=== PATIENT | male | born 2000 | race Caucasian/White ===

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

== ENCOUNTER 2023-07-31 10:49 | Outpatient (AMB) | payer OTHER, SELFPAY ==
--- NOTE | 2023-07-31 10:54 | MHC.PC.OV ---
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 Trouble focusing in school. Was diagnosed with ADHD in elementary but never took medication. Computational Linguist Required: No Accompanied by: Mother Allergies No Known Allergies [No Known Allergies*] Allergy (Verified 07/31/23 11:23) Tobacco use date assessed: 07/31/23 Dental Screening Dental Screen Date: 07/31/23 Did you have a dental visit in the last 12 months?: Yes Did you have a dental problem in the last 6 months where you did not have access to dental care?: No Was dental information given to patient?: Patient has dentist HPI HPI Comments History of Present Illness Details 23-year-old male generalized anxiety disorder, hyperlipidemia, ADHD Status post appendectomy with resection of short segment of small bowel for an enterotomy (2020), 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 Here today to est care with mom Would like to discuss medication for ADHD. 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 Mom reports a diagnosis was established around age 8 or 9. Patient never wanted any medications. Has a diagnosis of generalized anxiety disorder. Has never been on medications. At this time reports there is no anxiety. Denies depressive symptoms. 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 He has currently a sophomore. Reports low grades as a result of not being able to sit still or focus. He tries to play music but this no longer helps him. He leaves class half-way through as he can not sit through the lectures. He reports overall poor sleep patterns. Not sleeping. Going for runs her working out in the middle of the night. Mom reports long history of poor sleep patterns. Patient does not take any medications to help him sleep. Reports that he does not use any performance enhancing drugs or illicit substances. Denies any cardiac history REPLACED BY [facility] Medical History Anxiety High cholesterol Hypergranulation SCFE (slipped capital femoral epiphysis) Surgical History History of appendectomy History of hip surgery Status post laparoscopic appendectomy Family History (Updated 07/31/23 @ 11:09 by Mary Rivera CMA) Mother Hypercholesterolemia Father Hypercholesterolemia Hypertension Diabetes Paternal Grandfather Hypertension Hypercholesterolemia Diabetes Social History Household Members: Family Housing: House Alcohol intake: never Patient Tobacco Use Status: Never used Tobacco e-Cigarette/Vaping Use: Never Used service: No Current occupational status: employed Cognitive needs: No Hearing needs: No Vision needs: No Questionnaire PHQ-9 Over the last 2 weeks, how often have you been bothered by any of the following problems? 1. Little interest or pleasure in doing things: not at all 2. Feeling down, depressed, or hopeless: not at all 3. Trouble falling or staying asleep, or sleeping too much: not at all 4. Feeling tired or having little energy: not at all 5. Poor appetite or overeating: not at all 6. Feeling bad about yourself - or that you are a failure or have let yourself or your family down: not at all 7. Trouble concentrating on things, such as reading the newspaper or watching television: not at all 8. Moving or speaking so slowly that other people could have noticed. Or the opposite - being so fidgety or restless that you have been moving around a lot more than usual: not at all 9. Thoughts that you would be better off or of hurting yourself in some way: not at all Total score: 0 Depression Screening Interpretation: Negative Depression Screening Done: Yes 51996 - PHQ-9 Billing: Yes Source: Developed by Drs. Bud Sotelo, Tiffanie Ocampo, Andrae Dodge and colleagues, with an educational cheryl from [employer]. Thrive Questionnaire Date Thrive assessed: 07/31/23 I am a: Patient What is your living situation today?: I have a steady place to live Within the past 12 months, did the food you bought not last and you didn't have the money to get more?: Never true Within the past 12 months, did you worry whether your food would run out before you got money to buy more?: Never true Do you have trouble paying for medicines?: No Do you have trouble getting transportation to medical appointments?: No Do you have trouble paying your heating and electricity bill?: No Do you have trouble taking care of your child, family member or friend?: No Do you have trouble with day-to-day activities such as bathing, preparing meals, shopping, managing finances, etc.?: No Are you currently unemployed and looking for a job?: No Are you interested in more education?: No Please select the resources that you would like help with: None Currently or been in a relationship where the following occur: no concerns reported THRIVE Score: 0 AUDIT C Alcohol Use Questionnaire (AUDIT-C) 1. How often do you have a drink containing alcohol?: 2-4 times a month 2. How many drinks containing alcohol do you have on a typical day when you are drinking?: 1 or 2 3. How often do you have six or more drinks on one occasion?: Never Total Score: 2 Score Reviewed/Action Taken: Yes DAMARIS-7 AMB Questionnaire DAMARIS-7 Feeling nervous, anxious, or on edge: 0 = Not at all Not being able to stop or control worryin = Not at all Worrying too much about different things: 0 = Not at all Trouble relaxin = Not at all Being so restless that it is hard to sit still: 0 = Not at all Becoming easily annoyed or irritable: 0 = Not at all Feeling afraid as if something awful might happen: 0 = Not at all Total DAMARIS-7 score (0-4 normal; 5-9 mild; 10-14 moderate; 15-21 severe): 0 Source: Developed by Drs. Bud Sotelo, Tiffanie Ocampo, Andrae Dodge and colleagues, with an educational cheryl from [employer]. DAMARIS-7 Assessment Billing DAMARIS-7 Assessment Tool: DAMARIS-7 Assessment 79825 Physical exam (Primary Care) Vital Signs: Last Vital Signs Temp 98.8 F 07/31/23 11:00 Pulse 73 07/31/23 11:00 Resp 12 07/31/23 11:00 BP 130/80 07/31/23 11:00 Pulse Ox 98 07/31/23 11:00 Oxygen Delivery Method Room Air 07/31/23 11:00 BMI result Body Mass Index 26.4 Tobacco/Smoking Status: Tobacco use Status Tobacco use date assessed 07/31/23 07/31/23 11:03 Patient Tobacco Use Status Never used Tobacco 07/31/23 11:03 e-Cigarette/Vaping Use Never Used 07/31/23 11:03 PHQ-9: PHQ-9 Score PHQ-9: Total score 0 07/31/23 11:12 Depression Screening Interpretation: Negative Thrive Assessment: Date of Thrive Assessment Date Thrive assessed 07/31/23 07/31/23 11:12 Currently or been in a relationship where the following occur: no concerns reported Const Other: Awake alert oriented accompanied by mom Pleasant and cooperative Regular rate and rhythm Lung sounds clear to auscultation bilat Assessment and Plan Assessment & Plan (1) Hyperlipidemia: Comment: Mom reports this finding around age 19. We will check direct LDL today as he has not fasting. Code(s): E78.5 - Hyperlipidemia, unspecified Qualifiers: Hyperlipidemia type: moderate mixed hyperlipidemia not requiring statin therapy Qualified Code(s): E78.2 - Mixed hyperlipidemia (2) DAMARIS (generalized anxiety disorder): Comment: Has never been on medications. Feels his symptoms are well controlled right now. Code(s): F41.1 - Generalized anxiety disorder (3) ADHD: Comment: Subjective diagnosis made around age 9 at the electrical machine builder. I have asked for the pediatric records to be faxed to me to review. We will order labs today. Bring back in 1-2 weeks to discuss a treatment plan. He is not sleeping well at night. He has in a fraternity. We will likely entertain a nonstimulant to help control his symptoms. 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 While every effort has been made to ensure accuracy in shirt folder, still errors may have been included Sometimes, these errors may affect the content or meaning of the given sentence . Total time spent caring for the patient today was 45 minutes. This includes time spent before the visit reviewing the chart, time spent during the visit, and time spent after the visit on documentation Orders: Orders Comprehensive Met. Panel Today E78.5 - Hyperlipidemia, unspecified, F41.1 - Generalized anxiety disorder, F90.9 - Attention-deficit hyperactivity disorder, unspecified type TSH reflex Free T4 Today E78.5 - Hyperlipidemia, unspecified, F41.1 - Generalized anxiety disorder, F90.9 - Attention-deficit hyperactivity disorder, unspecified type LDL Cholesterol Direct Today E78.5 - Hyperlipidemia, unspecified, F41.1 - Generalized anxiety disorder, F90.9 - Attention-deficit hyperactivity disorder, unspecified type Microalbumin, Random (w Creat) Today E78.5 - Hyperlipidemia, unspecified, F41.1 - Generalized anxiety disorder, F90.9 - Attention-deficit hyperactivity disorder, unspecified type Complete Blood Count no Diff Today E78.5 - Hyperlipidemia, unspecified, F41.1 - Generalized anxiety disorder, F90.9 - Attention-deficit hyperactivity disorder, unspecified type Coding Level of Care Code New Pt Level 4 (01727) Diagnoses Moderate mixed hyperlipidemia not requiring statin therapy E78.2 Hyperlipidemia type: moderate mixed hyperlipidemia not requiring statin therapy DAMARIS (generalized anxiety disorder) F41.1 Attention deficit hyperactivity disorder (ADHD), combined type F90.2 Attention deficit-hyperactivity disorder type: combined inattentive-hyperactive Additional Codes DAMARIS-7 Assessment Billing - DAMARIS-7 Assessment Tool: DAMARIS-7 Assessment [id number] ([id number])
[2023-07-31 11:00] VITALS: BP 130/80; PULSE 73; RESP 12; TEMP 37.1; O2SAT 98; BMI 26.4
== END 2023-07-31 11:41 | disposition home or self-care (01) ==
PROVIDERS: PCP Nurse Practitioner Family; Visit Provider Nurse Practitioner Family
DX: E78.2 Mixed hyperlipidemia (principal); F41.1 Generalized anxiety disorder; F90.2 Attention-deficit hyperactivity disorder, combined type
CPT/HCPCS: 99204

== ENCOUNTER 2023-07-31 11:33 | Outpatient (REF) | payer OTHER, SELFPAY ==
[2023-07-31 15:06] LABS: Alanine Aminotransferase 21 U/L (0-40); Albumin Level 4.4 g/dL (3.5-5.0); Alkaline Phosphatase 87 U/L (39-117); Anion Gap 11 (12-20); Aspartate Amino Transferase 23 U/L (5-37); Bilirubin Total 0.5 mg/dL (0.0-1.0); Blood Urea Nitrogen 15 mg/dL (9-16); Calcium 10.4 mg/dL (8.4-10.2); Carbon Dioxide 28 mmol/L (22-29); Chloride 106 mmol/L (96-108); Estimated Glomerular Filt Rate > 60; Glucose Random 77 mg/dL (60-115); Potassium 3.6 mmol/L (3.3-5.1); Sodium 141 mmol/L (135-145); Total Protein 7.5 g/dL (6.5-8.0)
[2023-07-31 15:14] LABS: Hematocrit 47.3 % (42.0-52.0); Hemoglobin 16.1 g/dl (14.0-18.0); Mean Corpuscular Hemoglobin 28.9 pg (27.0-33.0); Mean Corpuscular Volume 84.9 fL (80.0-98.0); Mean Platelet Volume 10.5 fL (9.4-12.4); Platelet Count 266 X10*3/uL (160-400); Red Blood Count 5.57 X10*6/uL (4.60-5.80); Red Cell Distribution Width 12.3 % (11.0-16.0); White Blood Count 4.7 X10*3/uL (4.8-10.8)
[2023-07-31 15:16] LABS: TSH reflex Free T4 1.79 uIU/mL (0.32-4.0)
[2023-07-31 15:33] LABS: Creatinine Urine 221.75 mg/dL; Microalbum/Creatinine Ratio Ur 3.1 ug/mg cr (<30)
[2023-08-01 09:48] LABS: LDL Cholesterol Direct 123 mg/dL (<100)
== END 2023-07-31 11:34 | disposition home or self-care (01) ==
LOC: HO.WFDLDS 11:33
PROVIDERS: Visit Provider Nurse Practitioner Family
DX: F41.1 Generalized anxiety disorder (principal); F90.9 Attention-deficit hyperactivity disorder, unspecified type; E78.5 Hyperlipidemia, unspecified
CPT/HCPCS: 36415; 80053; 82043; 82570; 83721; 84443; 85027

== ENCOUNTER 2023-08-14 12:54 | Outpatient (AMB) | payer OTHER, SELFPAY ==
[2023-08-14 12:55] VITALS: BP 108/60; PULSE 67; RESP 13; O2SAT 98; BMI 26.5
--- NOTE | 2023-08-14 12:55 | A.OFFPC_ITS ---
Vital Signs 08/14/23 12:55 Height 5 ft 7.2 in Weight 170 lb BMI 26.5 BP 108/60 Blood Pressure Location Rt brachial Position Sitting Respiration 13 Pulse 67 Pulse Source Pulse Oximeter Pulse Oximetry (%) 98 Oxygen Delivery Method Room Air Intake Visit Reasons: FU LABS ADHD Intake Note: Patient reports he is here for a follow up. Patient states he has no concerns at this time. 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 Here today to follow up on labs and discuss medication management for ADHD and insomnia. 07/2024 LDL 123, otherwise normal CBC, TS H, CMP He has never been on any medications for ADHD in the past. Main concerns are trouble focusing, inability to complete tasks, racing thoughts at night, inability to fall asleep. [facility] Medical History (Updated 08/14/23 @ 13:55 by SHELLI Lennon-DANY) Hypergranulation Anxiety SCFE (slipped capital femoral epiphysis) High cholesterol Surgical History Status post laparoscopic appendectomy History of appendectomy History of hip surgery Family History (Updated 07/31/23 @ 11:09 by Mary Rivera CMA) Mother Hypercholesterolemia Father Hypercholesterolemia Hypertension Diabetes Paternal Grandfather Hypertension Hypercholesterolemia Diabetes Social History Household Members: Family Housing: House Alcohol intake: never Patient Tobacco Use Status: Never used Tobacco e-Cigarette/Vaping Use: Never Used service: No Current occupational status: employed Cognitive needs: No Hearing needs: No Vision needs: No Questionnaire Thrive Questionnaire Date Thrive assessed: 07/31/23 Review of Systems Const All systems reviewed & are unremarkable except as noted in HPI and below Physical exam (Primary Care) Vital Signs: Last Vital Signs Pulse 67 08/14/23 12:55 Resp 13 08/14/23 12:55 BP 108/60 08/14/23 12:55 Pulse Ox 98 08/14/23 12:55 Oxygen Delivery Method Room Air 08/14/23 12:55 BMI result Body Mass Index 26.5 Tobacco/Smoking Status: Tobacco use Status Tobacco use date assessed 07/31/23 08/14/23 13:02 Patient Tobacco Use Status Never used Tobacco 08/14/23 13:02 e-Cigarette/Vaping Use Never Used 08/14/23 13:02 Thrive Assessment: Date of Thrive Assessment Date Thrive assessed 07/31/23 08/14/23 13:02 Const Other: Awake alert oriented pleasant Pleasant and cooperative Regular rate and rhythm Lung sounds clear to auscultation bilat Assessment and Plan Assessment & Plan (1) ADHD: Comment: 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 I have asked for the pediatric records to be faxed to me to review (records pending) He is not sleeping well at night. 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 We will likely entertain a nonstimulant to help control his symptoms Plan: Start Wellbutrin XL 150 mg p.o. q.day. Advised to take in the morning. Follow up in 3-4 weeks on effectiveness. Titrate to effect. Code(s): F90.9 - Attention-deficit hyperactivity disorder, unspecified type Qualifiers: Attention deficit-hyperactivity disorder type: combined inattentive- hyperactive Qualified Code(s): F90.2 - Attention-deficit hyperactivity disorder, combined type (2) DAMARIS (generalized anxiety disorder): Comment: Has never been on medications. Feels his symptoms are well controlled right now. Prescribed Wellbutrin today to help with his ADHD. If there is any level of anxiety the Wellbutrin should help with this as well. Code(s): F41.1 - Generalized anxiety disorder (3) Hyperlipidemia: Comment: Mom reports this finding around age 19. Direct LDL 123. Continue to monitor. Code(s): E78.5 - Hyperlipidemia, unspecified Qualifiers: Hyperlipidemia type: moderate mixed hyperlipidemia not requiring statin therapy Qualified Code(s): E78.2 - Mixed hyperlipidemia (4) Insomnia: Comment: Associated with racing thoughts. The plan will be to start him on hydroxyzine 50 mg 1 tablet as needed at bedtime. Return to office in 3-4 weeks to follow up on effectiveness. Code(s): G47.00 - Insomnia, unspecified Plan: This note is constructed using voice recognition software. While every effort has been made to ensure accuracy in can striper, still errors may have been included Sometimes, these errors may affect the content or meaning of the given sentence . Total time spent caring for the patient today was 30 minutes. This includes time spent before the visit reviewing the chart, time spent during the visit, and time spent after the visit on documentation Medications: New bupropion HCl XL (Wellbutrin XL) 150 mg PO QAM 90 tabs 0RF hydroxyzine HCl 50 mg PO BEDTIME PRN 30 tabs 0RF insomnia/anxiety Patient Instructions: Return to office in 3-4 weeks to follow up on effectiveness of medications used to treat ADHD, insomnia. Sooner if needed. Coding Level of Care Code Est Pt Level 4 (89134) Diagnoses Attention deficit hyperactivity disorder (ADHD), combined type F90.2 Attention deficit-hyperactivity disorder type: combined inattentive- hyperactive DAMARIS (generalized anxiety disorder) F41.1 Moderate mixed hyperlipidemia not requiring statin therapy E78.2 Hyperlipidemia type: moderate mixed hyperlipidemia not requiring statin therapy Insomnia G47.00
== END 2023-08-14 13:29 | disposition home or self-care (01) ==
PROVIDERS: PCP Nurse Practitioner Family; Visit Provider Nurse Practitioner Family
DX: F90.2 Attention-deficit hyperactivity disorder, combined type (principal); F41.1 Generalized anxiety disorder; E78.2 Mixed hyperlipidemia; G47.00 Insomnia, unspecified
CPT/HCPCS: 99214

== ENCOUNTER 2023-10-31 13:16 | Outpatient (AMB) | payer OTHER, SELFPAY ==
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
[2023-10-31 13:29] VITALS: BP 122/70; PULSE 94; RESP 16; O2SAT 97; BMI 26.9
== END 2023-10-31 13:59 | disposition home or self-care (01) ==
PROVIDERS: PCP Nurse Practitioner Family; Visit Provider Nurse Practitioner Family
DX: F41.1 Generalized anxiety disorder (principal); F33.1 Major depressive disorder, recurrent, moderate
CPT/HCPCS: 99215

== ENCOUNTER 2024-03-10 08:31 | Outpatient (REF) | payer OTHER, SELFPAY ==
[2024-03-10 13:26] LABS: MANUAL DIFF FLAG NO
[2024-03-10 13:45] LABS: Basophils Percent Auto 0.5 % (0-2); Eosinophils Absolute Auto 0.1 X10*3/uL (0.0-0.4); Eosinophils Percent Auto 0.9 % (0-4); Hematocrit 44.2 % (42.0-52.0); Hemoglobin 15.4 g/dl (14.0-18.0); Imm Gran Abs Auto 0.03 X10*3/uL (0.00-0.03); Imm Gran Pct Auto 0.5 % (0.0-0.4); Lymphocytes Absolute Auto 1.4 X10*3/uL (1.2-4.9); Lymphocytes Percent Auto 24.2 % (20-40); Mean Corpuscular HGB Conc 34.8 g/dl (31.0-36.0); Mean Corpuscular Hemoglobin 29.3 pg (27.0-33.0); Mean Platelet Volume 10.7 fL (9.4-12.4); Monocytes Absolute Auto 0.8 X10*3/uL (0.1-1.2); Neutrophils Absolute Auto 3.5 x10*3/uL (2.0-8.3); Neutrophils Percent Auto 60.9 % (45-73); Platelet Count 248 X10*3/uL (160-400); Red Blood Count 5.26 X10*6/uL (4.60-5.80); Red Cell Distribution Width 12.4 % (11.0-16.0); White Blood Count 5.8 X10*3/uL (4.8-10.8)
[2024-03-10 13:57] LABS: Alanine Aminotransferase 28 U/L (0-40); Albumin Level 4.4 g/dL (3.5-5.0); Alkaline Phosphatase 98 U/L (39-117); Anion Gap 16 (12-20); Aspartate Amino Transferase 33 U/L (5-37); Bilirubin Total 0.6 mg/dL (0.0-1.0); Blood Urea Nitrogen 14 mg/dL (9-16); Calcium 10.2 mg/dL (8.4-10.2); Carbon Dioxide 21 mmol/L (22-29); Chloride 108 mmol/L (96-108); Estimated Glomerular Filt Rate > 60; Glucose Random 79 mg/dL (60-115); Lipase 23 U/L (8-78); Potassium 3.8 mmol/L (3.3-5.1); Sodium 141 mmol/L (135-145); Total Protein 7.6 g/dL (6.5-8.0)
== END 2024-03-10 08:32 | disposition home or self-care (01) ==
LOC: HO.HMGCLDS 08:31
PROVIDERS: PCP Nurse Practitioner Family; Visit Provider Physician Assistant
DX: R10.9 Unspecified abdominal pain (principal)
CPT/HCPCS: 36415; 80053; 83690; 85025

== ENCOUNTER 2024-03-10 08:31 | Outpatient (AMB) | payer OTHER, SELFPAY ==
--- OUTSIDE RECORDS SUMMARY | 2024-03-10 08:32 | XMS_ITS | Continuity of Care Document ---
Author Organization [facility] ter Address [address] [place] [address]- Care Team Providers Care Firebrick Layer Name Role Phone Harriet RIBEIRO, Jose Angel Hawk Primary Care Physician Encounter [facility] Date(s): 05/25/19 - 06/01/[address] [address]- [facility] Attending Physician: Lan Rock MD Allergies, Adverse Reactions, Alerts Substance Reaction Severity Status NKA Active Results Microbiology Reports TEST:Group A Strep Culture STATUS:Auth (Verified) BODY SITE: SOURCE:THROAT COLLECTED DATE/TIME:05/25/19 10:52 AM Group A Strep Culture SPECIMEN DESCRIPTION : THROAT SWAB SPECIAL REQUESTS : NONE CULTURE : NO GROUP A BETA HEMOLYTIC STREPTOCOCCI ISOLATED REPORT STATUS : FINAL 05/27/2019
--- OUTSIDE RECORDS SUMMARY | 2024-03-10 08:32 | XMS_ITS | Summary of Care ---
Author Organization [facility] Address [address] [place] [address]- Encounter [facility] [id number] Date(s): 12/01/19 - 12/01/19 [place] [address]- [facility] Discharge Disposition: Home Attending Physician: LYNN RIBEIRO, PhD, ADRIANA Landin
--- OUTSIDE RECORDS SUMMARY | 2024-03-10 08:32 | XMS_ITS | Continuity of Care Document ---
Author Organization [facility] ter Address [address] [place] [address]- Care Team Providers Care Assembler Steam And Gas Turbine Name Role Phone Jose Angel Worthington MD Primary Care Physician Encounter [facility] Date(s): 12/04/21 - 01/07/[address] [address] Attending Physician: Jose Angel Worthington MD Admitting Physician: Jose Angel Worthington MD Referring Physician: Jose Angel Worthington MD Allergies, Adverse Reactions, Alerts No Known Allergies Care Team Personnel Name: Jose Angel Worthington MD Address: [address] [place] [address]
--- OUTSIDE RECORDS SUMMARY | 2024-03-10 08:32 | XMS_ITS | Continuity of Care Document ---
Author Organization [facility] ter Address [address] [place] [address]- Care Team Providers Care Paver Operator Name Role Phone Harriet RIBEIRO, Jose Angel Hawk Primary Care Physician Encounter [facility] Date(s): 12/03/19 - 01/04/[address] [address]- [facility] Attending Physician: Tiffanie Jackson MD Admitting Physician: Tiffanie Jackson MD Referring Physician: Tiffanie Jackson MD Allergies, Adverse Reactions, Alerts Substance Reaction Severity Status NKA Active
--- OUTSIDE RECORDS SUMMARY | 2024-03-10 08:32 | XMS_ITS | Summary of Care ---
Author Organization [facility] Address [address] [place] [address]- Care Team Providers Care Movement Education Specialist Name Role Phone LIS WEBER MD Primary Care Physician Encounter [facility] [id number] Date(s): 12/08/19 - 12/08/19 [facility], [place] [address]- [facility] Encounter Diagnosis Primary exertional headache(Final) - Discharge Disposition: Home Attending Physician: RUPERT MARQUES Referring Physician: LIS WEBER MD Allergies, Adverse Reactions, Alerts No Known Allergies Medications No Known Medications
--- NOTE | 2024-03-10 08:34 | MHC.OFFWIV ---
Intake Vital Signs 03/10/24 08:37 Height 5 ft 7 in Weight 173 lb BMI 27.1 BP 118/70 Blood Pressure Location Rt brachial Position Sitting Pulse 70 Pulse Source Pulse Oximeter Temp 98.0 F Temp Source Oral Pulse Oximetry (%) 100 Intake Visit Reasons: EP Heartburn/ pain, vomiting when eating Intake Note: pt is here for heartburn, vomiting after eating for the last 3 days Patient Tobacco Use Status: Never used Tobacco Allergies No Known Allergies [No Known Allergies*] Allergy (Verified 03/10/24 08:38) Do you need a note to return to daycare/school/sports/work: No HPI HPI Comments History of Present Illness Details He presents to office with epigastric pain x 3 days States radiates into chest Has had heart burn in past and feels similar States + bloating, epigastric pain, easily feels full He said appetitie is fine + nausea after eating everything He had one episode of vomiting No diarrhea or constipation + cough throighout the day He has tried Tums which helps slightly He desxribes pain as tight and sharp with burn located in epigastric region Intermittent throughout the day but can be constant Now it is a 4/10; this am was worse Halloween weekend drank a lot at [employer] (Saturday-Saturday) [facility] Medical History (Updated 03/10/24 @ 09:07 by Connie Mckeon PA-C) Hypergranulation Anxiety SCFE (slipped capital femoral epiphysis) High cholesterol Surgical History Status post laparoscopic appendectomy History of appendectomy History of hip surgery Family History (Updated 07/31/23 @ 11:09 by Mary Rivera CMA) Mother Hypercholesterolemia Father Hypercholesterolemia Hypertension Diabetes Paternal Grandfather Hypertension Hypercholesterolemia Diabetes Social History Household Members: Family Housing: House Alcohol intake: never Patient Tobacco Use Status: Never used Tobacco e-Cigarette/Vaping Use: Never Used service: No Current occupational status: employed Cognitive needs: No Hearing needs: No Vision needs: No Review of Systems Const Denies chills, Denies fever(s), Denies headache(s) and Denies poor appetite ENT Denies dizziness, Denies headache(s) and Denies sore throat Card Denies chest pain, Denies syncope, Denies rapid heart rate and Denies dyspnea Resp Denies chest congestion, Denies cough and Denies dyspnea GI Reports abdominal pain, Denies melena, Denies constipation, Denies diarrhea, Denies loose stools, Reports nausea, Reports vomiting, Denies hematemesis and Reports other (bloating x 3 days) Denies dysuria Musc Denies myalgias Skin/Breast Denies skin pain Neuro Denies dizziness, Denies syncope and Denies headache(s) Physical Exam Vital Signs: Last Vital Signs Temp 98.0 F 03/10/24 08:37 Pulse 70 03/10/24 08:37 BP 118/70 03/10/24 08:37 Pulse Ox 100 03/10/24 08:37 BMI result Body Mass Index 27.1 General: Non-toxic, NAD. Speaking full sentences. Skin: Warm dry throughout Eye: PERRL, EOMI HENT: Airway patent. Uvula midline. No pharyngeal erythema or edema. No R[employer]EW[employer] BROKER. Bilateral canals clear. TM non-erythematous, non-bulging. No TM perforation or hemotympanum noted. Respiratory: CTA bilaterally. No wheezes, rales or rhonchi Cardiac: RRR. No murmur Abdominal: BS present. + epigastric tenderness to palpation. Negative [place] sign. No palpable masses. No abdominal distention or pusatile mass. MSK: Full ROM extremities. Neurology: A/O. No aphasia or facial droop. Equal strength. Gait without abnormality Psych: Good mood and affect Assessment & Plan Assessment & Plan (1) Abdominal pain: Code(s): R10.9 - Unspecified abdominal pain Qualifiers: Abdominal location: epigastric Qualified Code(s): R10.13 - Epigastric pain Plan: Patient seen and evaluated. Will order labs to r/o pancreatitis vs gastritis EKG NSR without ischemic changes or STEMI; 65bpm CBC, CMP, lipase ordered Discussed ER s/s Patient gave verbal understanding and had no additional questions or concerns at time of discharge All questions answered Orders: Orders Comprehensive Met. Panel Today R10.9 - Unspecified abdominal pain Lipase Today R10.9 - Unspecified abdominal pain Complete Blood Count Auto Diff Today R10.9 - Unspecified abdominal pain Medications: New omeprazole 20 mg PO DAILY 20 tabs 0RF Coding Level of Care Code Est Pt Level 3 (76443) Diagnoses Epigastric pain R10.13 Abdominal location: epigastric
[2024-03-10 08:37] VITALS: BP 118/70; PULSE 70; TEMP 36.7; O2SAT 100; BMI 27.1
== END 2024-03-10 09:11 | disposition home or self-care (01) ==
PROVIDERS: PCP Nurse Practitioner Family; Visit Provider Physician Assistant
DX: R10.13 Epigastric pain (principal)

== ENCOUNTER 2024-05-08 13:32 | Outpatient (AMB) | payer OTHER, SELFPAY ==
--- NOTE | 2024-05-08 13:39 | AM.OFFWIN_ITS ---
Intake Vital Signs 05/08/24 13:42 Height 5 ft 7 in Weight 178 lb BMI 27.9 BP 112/66 Blood Pressure Location Rt brachial Position Sitting Respiration 13 Pulse 87 Pulse Source Pulse Oximeter Temp 98.0 F Temp Source Oral Pulse Oximetry (%) 98 Oxygen Delivery Method Room Air Intake Visit Reasons: cough/flu Intake Note: Patient complaining of hard to breath, coughing, bodyaches and wheezing at night x 3 days Patient Tobacco Use Status: Never used Tobacco Order Entry Representative Required: No Allergies No Known Allergies [No Known Allergies*] Allergy (Verified 05/08/24 13:51) Medication List - Last Reconciled 05/08/24 by Marj Terry, [employer] TECHNICIAN- hydroxyzine HCl 50 mg PO BEDTIME PRN omeprazole 20 mg PO DAILY Do you need a note to return to daycare/school/sports/work: No HPI HPI Comments History of Present Illness Details 23-year-old male generalized anxiety dis order, hyperlipidemia, ADHD, MDD Status post appendectomy with resection of short segment of small bowel for an enterotomy (2020), 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 The patient is a 23-year-old male presenting with complaints of cough and respiratory distress. He reports experiencing symptoms for approximately 1 week, with the distress primarily occurring during the night and worsening when lying supine. The cough has been persistent, and he describes moments of significant difficulty in breathing, characterized by pressure and tightness in the center of the chest. He denies any history of asthma, smoking, vomiting, or stomach upset. He visited an urgent care facility where he was assessed for influenza and COVID-19, both of which returned negative results. An inhaler was prescribed and used once with marginal relief. He notes heightened anxiety during episodes of breathlessness. Previous exposure to prednisone showed no adverse reactions. Social History - Educational Status: [employer] and reports it is proceeding well. - Family Status: Supportive relationship with his mother. Mood is good w/o meds. Physical Exam General: Awake, alert. No apparent distress Eyes: Sclera and conjunctiva clear bilaterally Nose: Nares patent, turbinates erythematous, , no sinus tenderness with palpation bilaterally Ears: Tympanic membranes intact and clear bilaterally Throat: Moist mucosa membrane, pharynx within normal limits Cardiovascular: Regular rate and rhythm Respiratory: Clear to auscultation bilaterally, dry cough noted w/o distress Results - Labs: Negative results for Influenza a nd COVID-19 testing per reports. Plan - Prescribe oral prednisone for respirat ory distress, with specific dosing instructions for initiation and continuation. - Instruct patient to utilize inhaler mo re frequently, specifically two puffs every couple of hours as needed. - Prescribe cough suppressant medication to be taken up to three times daily as required. - Advise continuation of monitoring symp toms and seek further evaluation if no improvement by Saturday. Patient was informed and verbally consented to the use of an ambient scribe for clinic note documentation during this visit. Discussion Notes I discussed with the patient his current symptoms of cough and respiratory distress, noting the negative results for influenza and COVID-19. The management plan includes utilizing an inhaler and initiating oral corticosteroids (prednisone) to reduce inflammation and improve respiratory function. We considered antibiotics as a potential future option if symptoms persist or worsen by Saturday. I emphasized the importance of starting prednisone with food and the potential for pneumonia given the current widespread incidence, though it was not detected during this examination. Urged immediate contact or office visit should symptoms not improve within the next few days. Patient Instructions - Start prednisone today with food; cont inue one pill daily in the morning with food for five days. - Use the inhaler every few hours, two p uffs as needed, continuing for symptomatic relief. - Take cough medicine up to three times daily as needed. - Monitor symptoms and seek further eval uation if not improved by Saturday. - Collect prescribed medications from [facility] and begin treatment immediately. RTO as scheduled for CPE, sooner PRN [facility] Medical History (Updated 05/08/24 @ 13:58 by Marj Terry, [facility]) Hypergranulation Anxiety SCFE (slipped capital femoral epiphysis) High cholesterol Surgical History Status post laparoscopic appendectomy History of appendectomy History of hip surgery Family History (Updated 07/31/23 @ 11:09 by Mary Rivera [facility]) Mother Hypercholesterolemia Father Hypercholesterolemia Hypertension Diabetes Paternal Grandfather Hypertension Hypercholesterolemia Diabetes Social History Household Members: Family Housing: House Alcohol intake: never Patient Tobacco Use Status: Never used Tobacco e-Cigarette/Vaping Use: Never Used service: No Current occupational status: employed Cognitive needs: No Hearing needs: No Vision needs: No Physical Exam Vital Signs: Last Vital Signs Temp 98.0 F 05/08/24 13:42 Pulse 87 05/08/24 13:42 Resp 13 05/08/24 13:42 BP 112/66 05/08/24 13:42 Pulse Ox 98 05/08/24 13:42 Oxygen Delivery Method Simple Mask 05/08/24 13:42 BMI result Body Mass Index 27.9 Assessment & Plan Assessment & Plan (1) Viral URI with cough: Code(s): J06.9 - Acute upper respiratory infection, unspecified (2) MDD (major depressive disorder), recurrent episode: Code(s): F33.9 - Major depressive disorder, recurrent, unspecified Qualifiers: Major depression episode severity: moderate Qualified Code(s): F33.1 - Major depressive disorder, recurrent, moderate (3) ADHD: Comment: Subjective diagnosis made around age 9 at the [facility]. I have asked for the pediatric records to be faxed to me to review (records pending) He is not sleeping well at night. 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 We will likely entertain a nonstimulant to help control his symptoms Plan: Start Wellbutrin XL 150 mg p.o. q.day. Advised to take in the morning. Follow up in 3-4 weeks on effectiveness. Titrate to effect. Code(s): F90.9 - Attention-deficit hyperactivity disorder, unspecified type Qualifiers: Attention deficit-hyperactivity disorder type: combined inattentive- hyperactive Qualified Code(s): F90.2 - Attention-deficit hyperactivity disorder, combined type (4) DAMARIS (generalized anxiety disorder): Code(s): F41.1 - Generalized anxiety disorder Plan . Medications: New prednisone 20 mg PO DAILY 5 tabs 0RF benzonatate 100 mg PO TID 10 days PRN 30 caps 1RF cough Coding Level of Care Code Est Pt Level 4 (42804) Diagnoses Viral URI with cough J06.9 Moderate episode of recurrent major depressive disorder F33.1 Major depression episode severity: moderate Attention deficit hyperactivity disorder (ADHD), combined type F90.2 Attention deficit-hyperactivity disorder type: combined inattentive- hyperactive DAMARIS (generalized anxiety disorder) F41.1
[2024-05-08 13:42] VITALS: BP 112/66; PULSE 87; RESP 13; TEMP 36.7; O2SAT 98; BMI 27.9
== END 2024-05-08 16:41 | disposition home or self-care (01) ==
PROVIDERS: PCP Nurse Practitioner Family; Visit Provider Nurse Practitioner Family
DX: J06.9 Acute upper respiratory infection, unspecified (principal); F33.1 Major depressive disorder, recurrent, moderate; F90.2 Attention-deficit hyperactivity disorder, combined type; F41.1 Generalized anxiety disorder

== ENCOUNTER → 2024-05-08 13:32 | Outpatient (BNVA) | payer OTHER, SELFPAY | PROVIDERS: PCP Nurse Practitioner Family; Visit Provider Nurse Practitioner Family ==

== ENCOUNTER 2024-09-03 08:35 | Outpatient (AMB) | payer BC, SELFPAY ==
--- NOTE | 2024-09-03 08:37 | A.OFFPC_ITS ---
Vital Signs 09/03/24 08:40 Height 5 ft 7 in Weight 178 lb 8 oz BMI 28.0 BP 98/68 Blood Pressure Location Lt brachial Position Sitting Respiration 12 Pulse 64 Pulse Source Pulse Oximeter Temp 97.6 F Temp Source Oral Pulse Oximetry (%) 98 Oxygen Delivery Method Room Air Intake Visit Reasons: Anxiety - Depression Intake Note: Follow up Security Shift Manager Required: No Allergies No Known Allergies [No Known Allergies*] Allergy (Verified 09/03/24 08:43) Medication List - Last Reconciled 09/03/24 by SHELLI Lennon- hydroxyzine HCl 50 mg PO BEDTIME PRN omeprazole 20 mg PO DAILY Tobacco use date assessed: 09/03/24 Dental Screening Dental Screen Date: 09/03/24 Did you have a dental visit in the last 12 months?: Yes Did you have a dental problem in the last 6 months where you did not have access to dental care?: No Was dental information given to patient?: Patient has dentist HPI HPI Comments History of Present Illness Details 24-year-old male generalized anxiety dis order, hyperlipidemia, ADHD, MDD Status post appendectomy with resection of short segment of small bowel for an enterotomy (2020), 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 Social: graduates from [employer], Psych Major next year. Wants to be a State T rooper, has a girlfriend. 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 History of Present Illness - The patient is a 24-year-old male pres enting with anxiety and depression. - Recently, he experienced increased anx iety following failure in an important test for his criminal justice program. - The patient has a history of generaliz ed anxiety disorder, previously managed with hydroxyzine, causing significant grogginess. - The patient has had prior prescription s for Zoloft and Prozac, the latter not taken. - He expresses an aversion to medication s yet believes pharmacological intervention is essential. - He denies suicidal ideation but admits to obsessional thoughts, particularly health-related; racing thoughts and feelings of sadness. No suicidal ideation. - Previous involvement in counseling was beneficial, but the patient is not currently engaged, citing bias concerns with personal connections. - Overall, depressive symptoms present m ainly as situational disturbances. Due for Tdap, declined today. Physical Exam General: Well developed, well nourished, in no acute distress. Appears stated age. Head: Normocephalic, atraumatic. Eyes: Pupils are equal, round and reactive to light and accommodation. Conjunctivae are clear. Lungs: Clear to auscultation bilaterally. No rales, rhonchi or wheeze noted. Good air flow in all bower. Heart: Regular rate and rhythm. No murmurs, click, rubs or gallops are noted. Psych: Mood and affect appropriate Discussion Notes The patient and I discussed multiple interventions for managing his anxiety and depression, including a trial of fluoxetine, with detailed discussions on it being a safe and effective medication to manage his obsessive and anxiety- related symptoms, although concerns about side effects and lifestyle impacts were addressed. I advised continuing hydroxyzine with an alternative lower dosage to minimize grogginess. I also encouraged a referral to counseling services for cognitive-behavioral therapy despite his apprehension towards therapy, underscoring the potential benefits of a therapist's unbiased perspective. I recommended a six-week follow-up to evaluate the effectiveness of the fluoxetine. We reviewed the common initial side effects of fluoxetine, including possible headaches and nausea. The patient was offered the option of consulting community navigation for therapy referrals to align with his insurance and preferences. He declined an update for his tetanus immunization today. Assessment and Plan 1. Generalized Anxiety Disorder Plan to trial fluoxetine for managing anxiety with a tentative dose scheduling. We discussed dosage adjustments if initial side effects are intolerable. 2. Major Depressive Disorder Fluoxetine is also indicated for depressive symptoms, acknowledging its role in alleviating both anxiety and depression. 3. Insomnia We considered starting prazosin to target nocturnal anxiety-associated insomnia. - Declined at this time, will cont w/ hydroxyzine. 4. Situational Stress Reaction Reinforce support systems, including counseling access to refine stress management and cognitive-behavioral coping strategies. Patient Instructions - Start taking fluoxetine once daily, wi th or without food, at a consistent time. - Use hydroxyzine 10 mg as needed for ac carlyn anxiety during the day, ok to use higher doses at night. - Seek counseling services through [facility] or referral options. - Report any unusual symptoms or concern s with medication use. - Return for a follow-up in six weeks to reassess the effectiveness of treatment. Consent Patient was informed and verbally consented to the use of an ambient scribe for clinic note documentation during this visit. Total time spent caring for the patient today was 30 minutes. This includes time spent before the visit reviewing the chart, time spent during the visit, and time spent after the visit on documentation, reviewing laboratory results, diagnostic imaging, medications, performing a medically necessary evaluation, counseling on diagnoses, care coordination, ordering appropriate tests, ordering appropriate medications, review of tests performed by other providers, reporting test results with the patient, communication with other healthcare providers. [facility] Medical History (Updated 09/03/24 @ 09:00 by Marj Terry [facility]) Anxiety High cholesterol Hypergranulation SCFE (slipped capital femoral epiphysis) Surgical History History of appendectomy History of hip surgery Status post laparoscopic appendectomy Family History (Updated 07/31/23 @ 11:09 by Mary Rivera CMA) Mother Hypercholesterolemia Father Hypercholesterolemia Hypertension Diabetes Paternal Grandfather Hypertension Hypercholesterolemia Diabetes Social History Household Members: Family Housing: House Alcohol intake: never Patient Tobacco Use Status: Never used Tobacco e-Cigarette/Vaping Use: Never Used service: No Current occupational status: employed Cognitive needs: No Hearing needs: No Vision needs: No Questionnaire PHQ-9 Over the last 2 weeks, how often have you been bothered by any of the following problems? 1. Little interest or pleasure in doing things: not at all 2. Feeling down, depressed, or hopeless: not at all 3. Trouble falling or staying asleep, or sleeping too much: not at all 4. Feeling tired or having little energy: not at all 5. Poor appetite or overeating: not at all 6. Feeling bad about yourself - or that you are a failure or have let yourself or your family down: not at all 7. Trouble concentrating on things, such as reading the newspaper or watching television: not at all 8. Moving or speaking so slowly that other people could have noticed. Or the opposite - being so fidgety or restless that you have been moving around a lot more than usual: not at all 9. Thoughts that you would be better off or of hurting yourself in some way: not at all Total score: 0 Depression Screening Interpretation: Negative Depression Screening Done: Yes 89087 - PHQ-9 Billing: Yes Source: Developed by Drs. Bud Sotelo, Andrae Haynes and colleagues, with an educational cheryl from [employer]. Thrive Questionnaire Date Thrive assessed: 09/03/24 I am a: Patient What is your living situation today?: I have a steady place to live Within the past 12 months, did the food you bought not last and you didn't have the money to get more?: Never true Within the past 12 months, did you worry whether your food would run out before you got money to buy more?: Never true Do you have trouble paying for medicines?: No Do you have trouble getting transportation to medical appointments?: No Do you have trouble paying your heating and electricity bill?: No Do you have trouble taking care of your child, family member or friend?: No Do you have trouble with day-to-day activities such as bathing, preparing meals, shopping, managing finances, etc.?: No Are you currently unemployed and looking for a job?: No Are you interested in more education?: No Please select the resources that you would like help with: None Currently or been in a relationship where the following occur: No concerns reported THRIVE Score: 0 AUDIT C Alcohol Use Questionnaire (AUDIT-C) 1. How often do you have a drink containing alcohol?: Never 3. How often do you have six or more drinks on one occasion?: Never Total Score: 0 Score Reviewed/Action Taken: Yes DAMARIS-7 AMB Questionnaire DAMARIS-7 Date DAMARIS - 7 assessed: 09/03/24 Feeling nervous, anxious, or on edge: 0 = Not at all Not being able to stop or control worryin = Not at all Worrying too much about different things: 0 = Not at all Trouble relaxin = Not at all Being so restless that it is hard to sit still: 0 = Not at all Becoming easily annoyed or irritable: 0 = Not at all Feeling afraid as if something awful might happen: 0 = Not at all Total DAMARIS-7 score (0-4 normal; 5-9 mild; 10-14 moderate; 15-21 severe): 0 Source: Developed by Drs. Bud Sotelo, Andrae Haynes and colleagues, with an educational cheryl from [employer]. DAMARIS-7 Assessment Billing DAMARIS-7 Assessment Tool: DAMARIS-7 Assessment 09961 Physical exam (Primary Care) Vital Signs: Last Vital Signs Temp 97.6 F 09/03/24 08:40 Pulse 64 09/03/24 08:40 Resp 12 09/03/24 08:40 BP 98/68 09/03/24 08:40 Pulse Ox 98 09/03/24 08:40 Oxygen Delivery Method Room Air 09/03/24 08:40 BMI result Body Mass Index 28.0 Tobacco/Smoking Status: Tobacco use Status Tobacco use date assessed 09/03/24 09/03/24 08:42 Patient Tobacco Use Status Never used Tobacco 09/03/24 08:38 e-Cigarette/Vaping Use Never Used 09/03/24 08:38 PHQ-9: PHQ-9 Score PHQ-9: Total score 0 09/03/24 08:42 Depression Screening Interpretation: Negative Thrive Assessment: Date of Thrive Assessment Date Thrive assessed 09/03/24 09/03/24 08:42 Currently or been in a relationship where the following occur: No concerns repor ivelisse Coding Level of Care Code Est Pt Level 4 (63131) Complex EM visit Add On G2211 Diagnoses DAMARIS (generalized anxiety disorder) F41.1 Moderate episode of recurrent major depressive disorder F33.1 Major depression episode severity: moderate Tetanus, diphtheria, and acellular pertussis (Tdap) vaccination declined Z28.21 Additional Codes DAMARIS-7 Assessment Billing - DAMARIS-7 Assessment Tool: DAMARIS-7 Assessment 05618 ([id number]) PHQ-9 - 22035 - PHQ-9 Billing: Yes ([id number]) Assessment & Plan Assessment & Plan (1) DAMARIS (generalized anxiety disorder): Code(s): F41.1 - Generalized anxiety disorder Category: Medical (2) MDD (major depressive disorder), recurrent episode: Code(s): F33.9 - Major depressive disorder, recurrent, unspecified Category: Medical Qualifiers: Major depression episode severity: moderate Qualified Code(s): F33.1 - Major depressive disorder, recurrent, moderate (3) Tetanus, diphtheria, and acellular pertussis (Tdap) vaccination declined: Code(s): Z28.21 - Immunization not carried out because of patient refusal Category: Medical Plan . Orders: Referrals Nurse Navigator Referral F33.1 - Major depressive disorder, recurrent, moderate, F41.1 - Generalized anxiety disorder Medications: New fluoxetine (Prozac) 10 mg PO DAILY 30 caps 1RF hydroxyzine HCl 10 mg PO DAILY PRN 30 tabs 1RF anxiety Patient Instructions: National Suicide and Crisis Lifeline: Available 24 hours a day, 7 days a week, 365 days a year Dial 988 with any telephone to speak to someone [facility] (Mental / Behavioral health therapist: [address], [place] [phone] [facility]: [address] [place] [address] Open from 10am - 12pm (walk ins welcome) [facility] Crisis Services: [address] [place] [address] Walk in hours from 10am - 12pm Behavioral health Network: [address] [place] [address] [place] [address] [phone] Saturday through Saturday 8am - 8pm Saturday and Saturday 9am - 5pm Crisis Hotlines Suicide prevention, domestic violence, and other crisis hotlines for youth, young adults, and their friends and families. [place] Runaway Safeline: The National Runaway Safeline helps youth who have run away, are thinking about running away, or who already ran away but are ready to come home. Parents and guardians can also contact the hotline if they are worried about their child running away or if their child has already left home. The hotline is available 24 hours a day, seven days a week. Youth, parents, and guardians can also use the online chat feature on the Runaway Safeline's website to ask for help and get support, [place] [address]. National Runaway Safeline National Suicide Prevention Lifeline: The National Suicide Prevention Lifeline is a network of local crisis centers that are available 26/11 to provide support for youth and adults who are in any kind of emotional crisis. In addition to the main hotline number listed above, there are several other numbers to call depending on your needs: Japanese Language: Deaf and Hard of Hearin1-999.480.6868 Veterans: Disaster Distress: Anyone can also use their online chat feature on their website. National Suicide Prevention Lifeline [facility] Helpline: The [facility] Helpline is available to anyone in [place] who is need of emotional support. Anyone can call or text the helpline to receive help from specially trained volunteers. [place] high school and college students can also get online support through the IMHear_ program. For high school students, volunteers ages 15-18 are available Saturday- from 6-9PM. For college students, IMHear_ is available Saturday-Saturday from 5-9PM. The Narinder Project - The Narinder Project is a 26/11 crisis intervention and suicide prevention hotline for LGBTQ youth. Youth can also text Narinder to for support, or use the online chat feature on the Narinder Project's website. [employer] is available Saturday-Saturday between 3-10PM. [employer]Chat is available seven days a week between 3-10PM. SafeLink: SafeLink is for anyone who is being affected by domestic violence or dating violence. Volunteers at SafeLink speak Cameroonian and Japanese, and [employer] also has a service that can provide translation in more than 130 languages. TTY:
[2024-09-03 08:40] VITALS: BP 98/68; PULSE 64; RESP 12; TEMP 36.4; O2SAT 98; BMI 28.0
--- OUTSIDE RECORDS SUMMARY | 2024-09-03 08:50 | XMS_ITS | Encounter Summary ---
Author Organization [facility] Address [address] [place] [address] Phone Care Team Providers Care Business And Marketing Teacher Name Role Phone Jose Angel Worthington MD Primary Care Provider [phone] Encounter Details Date Type Department Care Team (Late st Contact Info) Description 09/18/2012 Documentation [facility] Family Medicine [address] [place] [address] Family Medicine, Physician [address] [place], [place] [id number] Social History Tobacco Use Types Packs/Day Years Used Date Smoking Tobacco: Never Assessed Sex and Gender Information Value Date Recorded Sex Assigned at Male 04/08/2020 1:53 PM EST Legal Sex Male 5:07 PM EDT Gender Identity Male 04/08/2020 1:53 PM EST Sexual Orientation Straight 04/08/2020 1: 53 PM EST documented as of this encounter Plan of Treatment Not on file documented as of this encounter Visit Diagnoses Not on filedocumented in this encounter Care Teams Business And Marketing Teacher Relationship Specialty Start Date End Date Jose Angel Worthington MD [address] [place] [address] [place] [address] PCP - General Pediatrics 11/22/21 08/08/23 documented as of this encounter
--- OUTSIDE RECORDS SUMMARY | 2024-09-03 08:50 | XMS_ITS | Clinical Summary ---
Author Organization [facility] Address [address] [place] [address] Care Team Providers Care Lead Portfolio Manager Name Role Phone Lan Molina MD Primary Care Provider [phone] Source Comments Please note that some or all of the patient's information could have additional privacy protections. State laws allow health care providers to render certain types of treatment to minors without parental consent. Please do not assume that this information can be shared solely by obtaining just the consent of the patient's parent/guardian. Please determine if all or part of the patient's care was rendered without parent/guardian involvement. And, if so, obtain the minor's consent prior to disclosure.[facility] Allergies Active Allergy Reactions Criticality Noted Date Comments Other (Environmental) 10/21/2017 seasonal Medications polyethylene glycol (MIRALAX) 17 gram/dose powder Take by mouth 06/02/2020 Activ e GAVILAX 17 gram/dose powder TAKE 17 G BY MOUTH DAILY. STIR AND DISSOLVE POWDER INTO 4 TO 8 OUNCES OF BEVERAGE AND THEN DRINK. 08/23/2020 Active Active Problems No known active problems Social History Tobacco Use Types Packs/Day Years Used Date Smoking Tobacco: Never Smokeless Tobacco: Never Other Needs Answer Date Recorded Anything else about your child you'd like help w ith? Not on file 01/18/2023 Share good news about positive changes: Not on f ile 01/18/2023 Sex and Gender Information Value Date Recorded Sex Assigned at Not on file Legal Sex Male 4:46 PM EDT Gender Identity Not on file Sexual Orientation Not on file Last Filed Vital Signs Vital Sign Reading Time Taken Comments Blood Pressure 129/60 08/29/2020 2:02 PM EDT Pulse 77 08/29/2020 2:02 PM EDT Temperature - - Respiratory Rate - - Oxygen Saturation 95% 08/29/2020 2:02 PM EDT Inhaled Oxygen Concentration - - Weight 62.3 kg (137 lb 5.6 oz) 08/29/2020 2:02 P M EDT Height 174 cm (5' 8.5 ) 08/29/2020 2:02 PM EDT Body Mass Index 20.58 08/29/2020 2:02 PM EDT Plan of Treatment Health Maintenance Due Date Last Done Comments DTaP/TDAP/TD VACCINES (1 - Tdap) 2009 ADOLESCENT HIV SCREENING 07/23/2015 COVID-19 Vaccine (2023-2 5 season) 2024 INFLUENZA (#1) 2024 NIRSEVIMAB VACCINES UNDER 8 MONTHS Aged Out No longer eligible based on patient's age to complete this topic Insurance [facility] Care Teams Lead Portfolio Manager Relationship Specialty Start Date End Date Lan Molina MD [address] [place] [address] [address] [place] [phone] PCP - General General Pediatrics 08/19/20
--- OUTSIDE RECORDS SUMMARY | 2024-09-03 08:50 | XMS_ITS | Clinical Summary ---
Author Organization [facility] Address [address] [place] [address] Phone Care Team Providers Care Consultants Intern Name Role Phone Unavailable Primary Care Provider Unavailabl e Allergies Active Allergy Reactions Criticality Noted Date Comments Environmental 10/21/2017 seasonal Medications fluticasone 50 MCG/ACT nasal spray SPRAY 1 SPRAY INTO EACH NOSTRIL EVERY DAY 09/20/2021 Active loratadine 10 MG tablet Take 10 mg by mouth daily in the morning. 09/20/2021 Active Spacer/Aero-Hol ding Chambers (AeroChamber Plus Hadley-Vu Large) miscIndications :Acute wheezy bronchitis Ut dicct 1 each 3 09/19/2022 Active albuterol HFA 108 (90 Base) MCG/ACT inhalerIndicati ons:Acute wheezy bronchitis Inhale 2 puffs every 4 (four) hours as needed for wheezing. 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 Mom has had anxiety as does step mom. Now presenting as feelings of unreality. Denies hallucinations August,: Now anxiety presenting as many somatic complaints, during pandemic Assessment & Plan (07/28/2021 1:57 PM EDT): Practice your breathing exercises, let me know if anxiety recurst Assessment & Plan (01/19/2021 6:05 PM EDT): With recent panic episodes Had recent ED visit w/ normal EKG Having only met pt today- discussed that it would be best to return and see PCP to address his ongoing anxiety I am willing to Rx a short course of prn hydroxyzine which he can take if he has another panic episode Assessment & Plan (08/20/2020 3:45 PM EDT): Taught relaxation techniques, during his recovery from Covid, referred to Marquita Buck. Assessment & Plan (08/05/2020 10:24 AM EDT): 1. Get to bed earlier by 11, turning off all electronics an hour before sleep. 2. Practice the self hypnosis exercises I taught you twice daily and when needed. 3. Your moms should read Anxious Parents, Anxious Kids by Bronwyn Draper and Jak Townsend. See therapist if not improving Assessment & Plan (06/02/2020 5:20 PM EST): I also discussed f/u with Dr. Rojas for his anxiety, which sounds quite significant, though mom says he has refused treatment. Assessment & Plan (04/08/2020 2:10 PM EST): Check out the book Anxious Kids, Anxious Parents by Bronwyn Townsend. See me for a consult. Resolved Problems Problem Noted Date Diagnosed Date Resolved Date History of COVID-19 12/02/2021 10/25/19 23 Overview (09/19/2022): Had two mild cases, 04/24, and 04/25 Chronic tension-type headach e, not intractable 08/19/2020 07/28/2021 Overview (08/19/2020): Related to stress Assessment & Plan (08/19/2020 11:58 AM EDT): Make sure to hydrate, get rest, stretch, don't overdue with weights, see me for consult Sensation of chest tightness 08/19/2020 07/28/2021 Overview (08/19/2020): probably functional but began with Covid, must rule out cardiac disease. will refer to Dr. Vargas Assessment & Plan (08/19/2020 4:48 PM EDT): [facility] myself and referred to Dr. Vargas. Disease due to severe acute respiratory syndrome coronavirus 2 (SARS-CoV-2) 08/05/202009/03 Assessment & Plan (07/28/2021 4:56 PM EDT): Is fine now Assessment & Plan (08/19/2020 12:00 PM EDT): Had Covid three weeks ago Assessment & Plan (08/05/2020 10:28 AM EDT): Off quarantine on Saturday. Advice given Left upper quadrant abdominal pain 04/08/2020 08/19/2020 Overview (04/08/2020): Due to lifting and anxiety Assessment & Plan (04/08/2020 2:15 PM EST): Cut down the weights by a notch, see me to learn relaxation breathing Pain of upper abdomen 04/08/20202021 Overview (08/05/2020): Probably related to weights and anxiety. Put on miralax but is not constipated Assessment & Plan (08/19/2020 11:56 AM EDT): Continue to have daily BM/ Keep record. See me for relaxation mental imagery. Continue miralax for now. Assessment & Plan (08/05/2020 10:24 AM EDT): Still having it though not going to the gym. Does have Covid now. Should recheck him in the office. Assessment & Plan (04/08/2020 2:13 PM EST): Cut down the weights by a notch, see me to learn relaxation breathing Refused influenza vaccine 05/05/2018 Overweight 06/03/2017 07/21/2018 Encounters Date Type Department Care Team Description 08/27/2024 Telephone [facility] - [address] [address] Tiffanie Jackson MD Immunizations from Last 3 Months Immunizations Immunization Administration Dates Next Due DTaP 5 02/05/2007, 4,02/04/2003,12/03,2002 HPV Vaccine 9 Valent 08/29/2017,12/25/2016 Hep B, ped/adol 05/27/2003,2002,2002 Hib (PRP-T) 02/04/2003,2002,2002 IPV 02/05/2007, 4,2002,10/01 Influenza, injectable, quadr ivalent, preservative free 04/04/2020 Influenza, injectable, trivalent 02/05/2007 MMR 08/19/2003 MMRV 02/05/2007 Meningococcal B Trumenba 10/09/2022 Meningococcal Conj (Menactra) MCV4P 04/08/2020,0 01/20/2015 Pneumococcal Conjugate 02/18/2004,2002,2002,10/01 Tdap 01/20/2015 Varicella 08/19/2003 Family History Medical History Relation Name Comments No Known Problems Brother 1 Clem No Known Problems Brother 2 Becket Immunodeficiency Father Edi Newton Hyperlipidemia Mother Karthik Aman Hypertension Mother Karthik Antoniojohny No Known Problems Sister Triny Relation Name Status Comments Brother 1 Clem Alive Brother: Alive and well, Alive and well Brother 2 Becket Alive Brother: Alive and well, Alive and well Father Edi Newton Alive Father: immun e disorderWorks as a wells, from patient's mother Mother Karthik Aman Alive Mother: Hyper tension, HyperlipidemiaDivorced from patient's father, works as a nurse Other Family history of Diabetes mellitus, Family history of Coronary artery disease, Family history of Allergies, Family history of Hyperlipidemia, Family history of Thyroid disease, Family history of Migraines Sister Triny Alive Sister: Alive a nd well Social History Tobacco Use Types Packs/Day Years Used Date Smoking Tobacco: Never Smokeless Tobacco: Never Tobacco Cessation:Counseling Given: Yes Alcohol Use Standard Drinks/Week Comments Yes 0 (1 standard drink = 0.6 oz pur e alcohol) Hunger/Food Answer Date Recorded In the last 12 months, did y ou or your family ever eat less than you felt you should because there wasn't enough money for food? No 10/09/2022 Stable Housing Answer Date Recorded Are you worried that in the next 2 months you may not have stable housing? No 10/09/2022 Transportation Concerns Answer Date Rec orded In the last 12 months, have you or your family ever had to go without healthcare because you didn't have a way to get there? No 10/09/2022 Hazards in Home Answer Date Recorded Think about the place you li ve. Do you have problems with any of the following? Pests (mice or roaches), mold, no/not working smoke detectors, water leaks, no window guards. No 2022 Financing Utilities Answer Date Recorde d In the last 12 months, has t he electric, gas, oil, or water company threatened to shut off your services in your home? No 10/09/2022 Safety at Home Answer Date Recorded Are you or your family worried about feeling saf e in your home? No 10/09/2022 Outside Support Answer Date Recorded Do you feel that you need mo re support from other people or programs to help you care for yourself or your family? No 10/09/2022 Understanding Health Concerns Answer Da te Recorded Do you need help understandi ng your or your child's healthcare needs (diagnosis, medications, plan, etc.)? No 10/09/2022 Financing Health Concerns Answer Date R ecorded In the last 12 months, was t here a time when your child needed to see a doctor or get medications or supplies but could not because of cost? No 10/09/2022 Missing School or Work Answer Date Douglas rded Did you or your child miss s chool or work because of a health problem that could have been avoided? No 10/09/2022 Sex and Gender Information Value Date Recorded Sex Assigned at Male 04/08/2020 1:53 PM EST Legal Sex Male 5:07 PM EDT Gender Identity Male 04/08/2020 1:53 PM EST Sexual Orientation Straight 04/08/2020 1: 53 PM EST Last Filed Vital Signs Vital Sign Reading Time Taken Comments Blood Pressure 94/59 10/09/2022 3:13 PM EDT Pulse 78 10/09/2022 3:13 PM EDT Temperature 36.3 ??C (97.3 ??F) 10/24/2022 4:11 PM ED T Respiratory Rate - - Oxygen Saturation 98% 10/03/2022 3:29 PM EDT Inhaled Oxygen Concentration - - Weight 68.9 kg (151 lb 12.8 oz) 10/24/2022 4:11 PM EDT Height 174 cm (5' 8.5 ) 10/09/2022 3:12 PM EDT Body Mass Index 22.75 10/09/2022 3:12 PM EDT Plan of Treatment Health Maintenance Due Date Last Done Comments Men B Vaccine (2 of 2 - Trumenba SCDM 2-dose series) 04/10/2023 10/09/2022 Influenza Vaccines (#1) 2023 04/04/2020, 02/05 COVID-19 Vaccine ( season) 2024 12/20/2020, 11/29/2020 DTaP,Tdap,and Td Vaccines (7 - Td or Tdap) 01/20/2025 01/20/2015, 02/05/2007, 02/18/2004, Additional history exists HIB Vaccines Aged Out 02/04/2003, 11/05, 2002 No longer eligible based on patient's age to complete this topic Hepatitis B Vaccines Completed 05/27/2003, 2002, 2002 Pneumococcal Vaccine Completed 02/18/2004, 02/04/2003, 2002, Additional history exists IPV Vaccines Completed 02/05/2007, 05/07, 2002, Additional history exists MMR Vaccines Completed 02/05/2007, 08/19/2003 Varicella Vaccines Completed 02/05/2007, 08/19/2003 HPV Vaccines Completed 08/29/2017, 12/25/2016 Meningococcal Vaccine Completed 04/08/2020, 015 Hepatitis A Vaccines Aged Out No long er eligible based on patient's age to complete this topic
--- OUTSIDE RECORDS SUMMARY | 2024-09-03 08:50 | XMS_ITS | Encounter Summary ---
Author Organization [facility] Address [address] [place] [address] Phone Care Team Providers Care Nuclear Medicine Supervisor Name Role Phone Jose Angel Worthington MD Primary Care Provider [phone] Encounter Details Date Type Department Care Team (Late st Contact Info) Description 09/17/2012 Documentation [facility] [place] [address] [place] [address] Family Medicine, Physician [address] [place], [place] [phone] Social History Tobacco Use Types Packs/Day Years [...] on filedocumented in this encounter Care Teams Nuclear Medicine Supervisor Relationship Specialty Start Date End Date Jose Angel Worthington MD [address] [place] [address] [place] [phone] PCP - General Pediatrics 11/22/21 08/08/23 documented as of this encounter
--- OUTSIDE RECORDS SUMMARY | 2024-09-03 08:50 | XMS_ITS | Encounter Summary ---
Author Organization [facility] Address [address] [place] [address] Phone Care Team Providers Care Cloud Administrator Name Role Phone Jose Angel Worthington MD Primary Care Provider Encounter Details Date Type Department Care Team (Late st Contact Info) Description 12/26/2016 Documentation [facility] [place] Family Medicine [address] [place] [address] Family Medicine, Physician [address] [place], [place] [phone] Social History Tobacco Use Types Packs/Day Years [...] on filedocumented in this encounter Care Teams Cloud Administrator Relationship Specialty Start Date End Date Jose Angel Worthington MD [address] [place] [address] [place] [phone] PCP - General Pediatrics 11/22/21 08/08/23 documented as of this encounter
--- OUTSIDE RECORDS SUMMARY | 2024-09-03 08:50 | XMS_ITS | Encounter Summary ---
Author Organization [facility] Address [address] [place] [address] Phone Care Team Providers Care Risk Compliance Analyst Name Role Phone Jose Angel Worthington MD Primary Care Provider [phone] Encounter Details Date Type Department Care Team (Late st Contact Info) Description 09/14/2009 Documentation [facility] [place] Family Medicine [address] [place] [address] Family Medicine, Physician [address] [place], [place] [phone] Social History Tobacco Use Types Packs/Day Years [...] on filedocumented in this encounter Care Teams Risk Compliance Analyst Relationship Specialty Start Date End Date Jose Angel Worthington MD [address] [place] [address] [place] [phone] PCP - General Pediatrics 11/22/21 08/08/23 documented as of this encounter
--- OUTSIDE RECORDS SUMMARY | 2024-09-03 08:50 | XMS_ITS | Encounter Summary ---
Author Organization [facility] Address [address] [place] [address] Phone Care Team Providers Care Window Unit Air Conditioning Mechanic Name Role Phone Jose Angel Worthington MD Primary Care Provider [phone] Encounter Details Date Type Department Care Team (Late st Contact Info) Description 12/20/2016 Conversion Encounter [facility] [place] [address] [place] [address] Social History Tobacco Use Types Packs/Day Years [...] on filedocumented in this encounter Care Teams Window Unit Air Conditioning Mechanic Relationship Specialty Start Date End Date Jose Angel Worthington MD [address] [place] [address] PCP - General Pediatrics 11/22/21 08/08/23 documented as of this encounter
== END 2024-09-03 09:03 | disposition home or self-care (01) ==
LOC: HO.HMCFM 08:35
PROVIDERS: PCP Nurse Practitioner Family; Visit Provider Nurse Practitioner Family
DX: F41.1 Generalized anxiety disorder (principal); F33.1 Major depressive disorder, recurrent, moderate; Z28.21 Immunization not carried out because of patient refusal

== ENCOUNTER → 2024-09-03 08:35 | Outpatient (BNVA) | payer BC, SELFPAY | PROVIDERS: PCP Nurse Practitioner Family; Visit Provider Nurse Practitioner Family | DX: F41.1 Generalized anxiety disorder (principal); F33.1 Major depressive disorder, recurrent, moderate; G47.00 Insomnia, unspecified; F43.9 Reaction to severe stress, unspecified; Z28.21 Immunization not carried out because of patient refusal | CPT/HCPCS: 96127 ==

== ENCOUNTER 2025-01-26 08:25 | Outpatient (AMB) | payer BC, SELFPAY ==
--- NOTE | 2025-01-26 08:33 | A.OFFPC_ITS ---
Vital Signs 01/26/25 08:36 Height 5 ft 7 in Weight 166 lb 8 oz BMI 26.1 BP 104/67 Blood Pressure Location Rt brachial Position Sitting Respiration 12 Pulse 65 Pulse Source Pulse Oximeter Temp 97.2 F Temp Source Oral Pulse Oximetry (%) 98 Oxygen Delivery Method Room Air Intake Visit Reasons: stomach issues Intake Note: Patient c/o stomach issues x 2 months Water Resource Engineer Required: No Allergies No Known Allergies (No Known Allergies*) Allergy (Verified 01/26/25 08:33) Medication List - Last Reconciled 01/26/25 by Marj Terry, HEEL SLICKER- omeprazole 20 mg PO DAILY Tobacco use date assessed: 01/26/25 Dental Screening Dental Screen Date: 01/26/25 Did you have a dental visit in the last 12 months?: Yes Did you have a dental problem in the last 6 months where you did not have access to dental care?: No Was dental information given to patient?: Patient has dentist HPI HPI Comments History of Present Illness Details 24-year-old male generalized anxiety dis order, hyperlipidemia, ADHD, MDD Status post appendectomy with resection of short segment of small bowel for an enterotomy (2020), 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 Here with abd sx: Vacation in November, worse since this time Stomach cramps all day; worse at night; pain is generalized + nausea, no vomiting Started back on omeprazole and this helped some Bad taste in mouth, back of throat when lying down feels fluid in back of throat diarrhea + blood + hemorrhoids Reports life long issues w/ this but worse at this time Wt is stable Appetite normal Denies fx hx of chrons, ulcerative colitis, CRC Dad has digestive issues Reports testing done earlier this month at school - shows me the records Testing was done while on PPI CBC, CMP, TtG, IgA, H Pylori, Lipase WNL Exam Awake alert NAD Scleras nonicteric bilat MMM Speaking in full sentences Abd soft, normoactive bs x 4, no heptomegaly, negative murphys sign; tender transverse lower abd w/o rebound Rectal exam deferred Skin PWD Plan I advised the patient that current findings suggest Gastroesophageal Reflux Disease, potentially exacerbated post-vacation. We discussed discontinuing omeprazole temporarily to repeat stool tests for H. pylori. Additional stool studies will include fecal calprotectin to assess for inflammatory bowel disease, and evaluation for blood within the stool. We also thoroughly reviewed the potential for referring the patient to a gastrointestinal specialist ([facility]) for specialist management, given the persistent symptoms. I also reinforced the importance of monitoring for any alarming symptoms and encouraged prompt scheduling of the GI follow-up to ensure ongoing management. 1. Gastroesophageal Reflux Disease (GERD ) - Omeprazole to be held for testing. - Resume post-evaluation. 2. Chronic Abdominal Pain - Await stool test results. - GI specialist referral initiated. 3. Hemorrhoids - Monitor symptoms. - Pending specialist evaluation. 4. Possible Inflammatory Bowel Disease - Order further stool studies. - Rule out conditions including Crohn's disease. 5. Constipation - Symptomatic guidance provided. - Dietary advice pending further assessm ents. Patient was given time to ask questions. All questions were answered to their satisfaction. - Stop taking omeprazole for two weeks a s advised. - Submit stool samples to lab as instruc ivelisse. - Schedule GI specialist appointment wit hout delay. - Consider dietary modification based on GI outcomes. - Return to clinic if symptoms worsen or new symptoms develop. Due for tdap, admin today. Total time spent caring for the patient today was 30 minutes. This includes time spent before the visit reviewing the chart, time spent during the visit, and time spent after the visit on documentation, reviewing laboratory results, diagnostic imaging, medications, performing a medically necessary evaluation, counseling on diagnoses, care coordination, ordering appropriate tests, ordering appropriate medications, review of tests performed by other providers, reporting test results with the patient, communication with other healthcare providers. [facility] Medical History (Updated 01/26/25 @ 09:[address] [facility] [place]) Anxiety High cholesterol Hypergranulation SCFE (slipped capital femoral epiphysis) Surgical History History of appendectomy History of hip surgery Status post laparoscopic appendectomy Family History (Updated 07/31/23 @ 11:09 by Mary Rivera CMA) Mother Hypercholesterolemia Father Hypercholesterolemia Hypertension Diabetes Paternal Grandfather Hypertension Hypercholesterolemia Diabetes Social History Household Members: Family Housing: House Alcohol intake: never Patient Tobacco Use Status: Never used Tobacco e-Cigarette/Vaping Use: Never Used service: No Current occupational status: employed Cognitive needs: No Hearing needs: No Vision needs: No Questionnaire Thrive Questionnaire Date Thrive assessed: 05/08/24 I am a: Patient What is your living situation today?: I have a steady place to live Within the past 12 months, did the food you bought not last and you didn't have the money to get more?: Never true Within the past 12 months, did you worry whether your food would run out before you got money to buy more?: Never true Do you have trouble paying for medicines?: No Do you have trouble getting transportation to medical appointments?: No Do you have trouble paying your heating and electricity bill?: No Do you have trouble taking care of your child, family member or friend?: No Do you have trouble with day-to-day activities such as bathing, preparing meals, shopping, managing finances, etc.?: No Are you currently unemployed and looking for a job?: No Are you interested in more education?: No Please select the resources that you would like help with: None Currently or been in a relationship where the following occur: No concerns reported THRIVE Score: 0 DAMARIS-7 AMB Questionnaire DAMARIS-7 Date DAMARIS - 7 assessed: 09/03/24 Source: Developed by Drs. Bud Sotelo, Tiffanie Ocampo, Andrae Dodge and colleagues, with an educational cheryl from [employer]. Physical exam (Primary Care) Vital Signs: Last Vital Signs Temp 97.2 F 01/26/25 08:36 Pulse 65 01/26/25 08:36 Resp 12 01/26/25 08:36 BP 104/67 01/26/25 08:36 Pulse Ox 98 01/26/25 08:36 Oxygen Delivery Method Room Air 01/26/25 08:36 BMI result Body Mass Index 26.1 Tobacco/Smoking Status: Tobacco use Status Tobacco use date assessed 01/26/25 01/26/25 08:34 Patient Tobacco Use Status Never used Tobacco 01/26/25 08:34 e-Cigarette/Vaping Use Never Used 01/26/25 08:34 Thrive Assessment: Date of Thrive Assessment Date Thrive assessed 05/08/24 01/26/25 08:34 Currently or been in a relationship where the following occur: No concerns reported Coding Level of Care Code Est Pt Level 4 (31855) Complex EM visit Add On G2211 Diagnoses Influenza vaccination declined Z28.21 Need for Tdap vaccination Z23 Rectal bleeding K62.5 Epigastric pain R10.13 Abdominal location: epigastric Alternating constipation and diarrhea R19.8 Abdominal cramping R10.9 GERD (gastroesophageal reflux disease) K21.9 Assessment & Plan Assessment & Plan (1) Influenza vaccination declined: Code(s): Z28.21 - Immunization not carried out because of patient refusal Category: Medical (2) Need for Tdap vaccination: Code(s): Z23 - Encounter for immunization Category: Medical (3) Rectal bleeding: Code(s): K62.5 - Hemorrhage of anus and rectum Category: Medical (4) Abdominal pain: Code(s): R10.9 - Unspecified abdominal pain Category: Medical Qualifiers: Abdominal location: epigastric Qualified Code(s): R10.13 - Epigastric pain (5) Alternating constipation and diarrhea: Code(s): R19.8 - Other specified symptoms and signs involving the digestive system and abdomen Category: Medical (6) Rectal bleeding: Code(s): K62.5 - Hemorrhage of anus and rectum Category: Medical (7) Abdominal cramping: Code(s): R10.9 - Unspecified abdominal pain Category: Medical (8) GERD (gastroesophageal reflux disease): Code(s): K21.9 - Gastro-esophageal reflux disease without esophagitis Category: Medical Plan . Orders: Orders H pylori Ag Stool Today K62.5 - Hemorrhage of anus and rectum, R10.13 - Epigastric pain, R19.8 - Other specified symptoms and signs involving the digestive system and abdomen GI Panel Today K62.5 - Hemorrhage of anus and rectum, R10.13 - Epigastric pain, R10.9 - Unspecified abdominal pain, R19.8 - Other specified symptoms and signs involving the digestive system and abdomen AMB Stool Occult Bld x3 gFOBT Today K62.5 - Hemorrhage of anus and rectum, R10.13 - Epigastric pain, R19.8 - Other specified symptoms and signs involving the digestive system and abdomen, Z12.11 - Encounter for screening for malignant neoplasm of colon, Z12.12 - Encounter for screening for malignant neoplasm of rectum Calprotectin, Fecal Today K62.5 - Hemorrhage of anus and rectum, R10.13 - Epigastric pain, R19.8 - Other specified symptoms and signs involving the digestive system and abdomen TDaP Immunization Today Z23 - Encounter for immunization Referrals Gastroenterology Referral K62.5 - Hemorrhage of anus and rectum, R10.9 - Unspecified abdominal pain, R19.8 - Other specified symptoms and signs involving the digestive system and abdomen Medications: New Boostrix Tdap (diphth,pertus(acell),tetanus) 0.5 mL IM ONCE 0.5 mL 0RF NS Z23 - Encounter for immunization Discontinued hydroxyzine HCl Discontinued Reason: Patient no longer taking 50 mg PO BEDTIME PRN 30 tabs 0RF insomnia/anxiety fluoxetine (Prozac) Discontinued Reason: Patient no longer taking 10 mg PO DAILY 30 caps 1RF hydroxyzine HCl Discontinued Reason: Patient no longer taking 10 mg PO DAILY PRN 30 tabs 1RF anxiety
[2025-01-26 08:36] VITALS: BP 104/67; PULSE 65; RESP 12; TEMP 36.2; O2SAT 98; BMI 26.1
--- OUTSIDE RECORDS SUMMARY | 2025-01-26 09:23 | XMS_ITS | Clinical Summary ---
Author Organization [facility] Address [address] [place] [id number] Care Team Providers Care Senior Test Analyst Name Role Phone Lan Molina MD Primary Care Provider Source Comments Please note that some or [...] SCREENING 07/23/2015 COVID-19 Vaccine (2023-2 5 season) 2025 INFLUENZA (#1) 2025 NIRSEVIMAB VACCINES UNDER 8 MONTHS Aged Out No longer eligible based on patient's age to complete this topic Insurance [facility] ([employer]) Care Teams Senior Test Analyst Relationship Specialty Start Date End Date Lan Molina MD [address] [place] [address] [address] [place] [phone] PCP - General General Pediatrics 08/19/20
== END 2025-01-26 09:21 | disposition home or self-care (01) ==
LOC: HO.HMCFM 08:26
PROVIDERS: PCP Nurse Practitioner Family; Visit Provider Nurse Practitioner Family
DX: Z28.21 Immunization not carried out because of patient refusal (principal); Z23 Encounter for immunization; K62.5 Hemorrhage of anus and rectum; R10.13 Epigastric pain; R19.8 Other specified symptoms and signs involving the digestive system and abdomen; R10.9 Unspecified abdominal pain; K21.9 Gastro-esophageal reflux disease without esophagitis

== ENCOUNTER → 2025-01-26 08:25 | Outpatient (BNVA) | payer BC, SELFPAY | PROVIDERS: PCP Nurse Practitioner Family; Visit Provider Nurse Practitioner Family | DX: K21.9 Gastro-esophageal reflux disease without esophagitis (principal); G89.29 Other chronic pain; K64.9 Unspecified hemorrhoids; K62.5 Hemorrhage of anus and rectum; K59.00 Constipation, unspecified; R10.13 Epigastric pain; R19.8 Other specified symptoms and signs involving the digestive system and abdomen; Z28.21 Immunization not carried out because of patient refusal | CPT/HCPCS: 90471; 90715 ==